=== PATIENT | female | born 1995 ===

== ENCOUNTER 2019-06-29 05:34 | Inpatient (IN) | payer OTHER ==
[~2019-06-29] VITALS: Ht 167.6 cm; Wt 2.3 kg
[2019-06-29] MEDS ORDERED: PRENATAL CAPLE1 EAC1 PO (06:12)
== END 2019-07-01 12:12 | disposition home or self-care (01) | DRG 807 ==
LOC: OB/GYN 05:34 → LDR 05:34 → OB/GYN 16:09
PROVIDERS: ADMIT Obstetrics & Gynecology
PROC: 10E0XZZ Delivery of Products of Conception, External Approach (ICD-10-PCS; principal; 2019-06-29)
PROC: 4A1HXCZ Monitoring of Products of Conception, Cardiac Rate, External Approach (ICD-10-PCS; 2019-06-29)
PROC: 4A033R1 Measurement of Arterial Saturation, Peripheral, Percutaneous Approach (ICD-10-PCS; 2019-06-29)
DX: O60.14X0 Preterm labor third trimester with preterm delivery third trimester, not applicable or unspecified (principal); Z37.0 Single live birth; Z22.330 Carrier of Group B streptococcus; Z3A.34 34 weeks gestation of pregnancy